=== PATIENT | female | born 1960 | race Caucasian/White ===

== ENCOUNTER 2017-04-01 09:54 | Outpatient (CLI) | payer OTHER | END 2017-04-01 09:55 | disposition home or self-care (01) | LOC: BICULT 09:54 | PROVIDERS: ATTEND Family Medicine | DX: R94.5 Abnormal results of liver function studies (principal) | CPT/HCPCS: 76700 ==

== ENCOUNTER 2018-04-16 09:05 | Outpatient (CLI) | payer OTHER ==
--- NOTE | 2018-04-16 11:02 | MMO ---
BILATERAL SCREENING MAMMOGRAM: History: Annual screening exam. Comparison: 04-13-16, 03-27-14 This study is interpreted with the assistance of computer aided detection. FINDINGS: Bilateral breast augmentation is noted. Implants appeared normal. The breast tissue is heterogeneousl y dense. There is no dominant mass or suspicious calcification. A few scattered calcifications are se en in both breasts, stable. IMPRESSION: BIRADS category 2 - benign findings. POS: [facility]
== END 2018-04-16 09:06 | disposition home or self-care (01) ==
LOC: SCSMAMMO 09:05
PROVIDERS: ATTEND Family Medicine
DX: Z12.31 Encounter for screening mammogram for malignant neoplasm of breast (principal)
CPT/HCPCS: 77067